=== PATIENT | female | born 1945 | race Caucasian/White ===

== ENCOUNTER 2016-07-20 10:37 | Day surgery (SDC) | payer MEDICARE, OTHER ==
[2016-07-20] MEDS ORDERED: LACTATED RINGERS 1,000 ML IV ONE ×2 (10:48→12:04)
[2016-07-20] MEDS ORDERED: fentaNYL 250 MCG/5 ML VIAL IVP ONE (11:00)
[2016-07-20] MEDS ORDERED: MIDAZOLAM 2 MG/2 ML VIAL IVP ONE (11:00)
== END 2016-07-20 10:38 | disposition home or self-care (01) ==
PROC: 0DJD8ZZ Inspection of Lower Intestinal Tract, Via Natural or Artificial Opening Endoscopic (ICD-10-PCS; principal; 2016-07-20 12:45)
DX: Z12.11 Encounter for screening for malignant neoplasm of colon (principal); K57.30 Diverticulosis of large intestine without perforation or abscess without bleeding; K64.8 Other hemorrhoids
CPT/HCPCS: G0121; J3010; J7120

== ENCOUNTER 2017-03-24 15:36 | Outpatient (CLI) | payer MEDICARE, OTHER ==
--- NOTE | 2017-03-25 09:24 | XRAY Report ---
THREE VIEW LUMBAR SPINE: 03/24/2017 CLINICAL INDICATION: Pain. FINDINGS: AP, lateral, and coned down views of the lumbar spine demonstrate moderate degenerative di sk and facet disease. There is no evidence of acute fracture. The bowel gas pattern is normal. Cholel ithiasis is noted. IMPRESSION: MODERATE DEGENERATIVE CHANGES. NO EVIDENCE OF FRACTURE. JOB #: [id number] EXT JOB #:[id number]
== END 2017-03-24 15:37 | disposition home or self-care (01) ==
LOC: DI.S 15:36
PROVIDERS: ATTEND Physician Assistant
DX: M51.36 Other intervertebral disc degeneration, lumbar region (principal)
CPT/HCPCS: 72100

== ENCOUNTER 2017-12-21 09:06 | Outpatient (CLI) | payer MEDICARE ==
[2017-12-21 18:09] LABS: BASOPHILS % (AUTO) 0.5 %; EOSINOPHILS # (AUTO) 0.1 10^3/uL (0.0-0.7); EOSINOPHILS % (AUTO) 3.2 %; HGB - HEMOGLOBIN 14.8 g/dL (12.0-16.0); LYMPHOCYTES # (AUTO) 1.7 10^3/uL (1.5-3.5); LYMPHOCYTES % (AUTO) 41.9 %; MEAN CORPUSCULAR HEMOGLOBIN 32.2 pg (27.0-31.0); MEAN CORPUSCULAR HGB CONC 33.9 g/dL (32.0-36.0); MEAN CORPUSCULAR VOLUME 94.9 fL (81.0-99.0); MEAN PLATELET VOLUME 9.3 fL (7.9-10.8); MONOCYTES # (AUTO) 0.3 10^3/uL (0.0-1.0); MONOCYTES % (AUTO) 6.7 %; NEUTROPHILS # (AUTO) 1.9 10^3/uL (1.5-6.6); NEUTROPHILS % (AUTO) 47.7 %; PLT - PLATELET COUNT 185 10^3/uL (130-450); RED CELL DISTRIBUTION WIDTH 13.3 % (12.0-15.0)
[2017-12-21 18:25] LABS: HB2 TOTAL 16.3 g/dL; HEMOGLOBIN A1C 0.56 g/dL; HEMOGLOBIN A1C % 5.3 % (4.6-6.2)
[2017-12-21 18:34] LABS: ALBUMIN 3.7 g/dL (3.2-5.5); ALBUMIN/GLOBULIN RATIO 1.2 (1.0-2.2); ALKALINE PHOSPHATASE 45 IU/L (42-121); ALT ALANINE AMINOTRANSFERASE 25 IU/L (10-60); AST ASPARTATE AMINOTRANSFERASE 27 IU/L (10-42); BILIRUBIN,TOTAL 0.5 mg/dL (0.2-1.0); BUN - BLOOD UREA NITROGEN 21 mg/dL (6-20); CALCIUM 9.1 mg/dL (8.5-10.3); CARBON DIOXIDE - CO2 29 mmol/L (21-32); CHLORIDE 106 mmol/L (101-111); CHOL/HDL RATIO 2.8 (<4.4); CHOLESTEROL 206 mg/dL; CREATININE 0.7 mg/dL (0.4-1.0); GFR - MDRD 83 (>89); GLUCOSE 83 mg/dL (70-100); HDL CHOLESTEROL 73 mg/dL; LDL CHOLESTEROL,CALCULATED 116 mg/dL; LDL/HDL RATIO 1.6 (<4.4); SODIUM 141 mmol/L (135-145); TOTAL PROTEIN 6.8 g/dL (6.7-8.2); VLDL CHOLESTEROL 17 mg/dL
[2017-12-21 18:35] LABS: THYROID STIMULATING HORMONE 1.13 uIU/mL (0.34-5.60)
[2017-12-21 18:36] LABS: FREE T4 (FREE THYROXINE) 0.74 ng/dL (0.58-1.64)
[2017-12-22 11:26] LABS: ESTRADIOL <15 pg/mL
[2017-12-22 13:36] LABS: PROGESTERONE <0.5 ng/mL
== END 2017-12-21 09:07 | disposition home or self-care (01) ==
LOC: LAB.F 09:06
PROVIDERS: ATTEND Naturopath
DX: Z00.00 Encounter for general adult medical examination without abnormal findings (principal); R73.01 Impaired fasting glucose; E03.9 Hypothyroidism, unspecified; N94.3 Premenstrual tension syndrome; N95.1 Menopausal and female climacteric states; R53.83 Other fatigue
CPT/HCPCS: 36415; 80053; 80061; 82626; 82670; 83036; 83721; 84144; 84439; 84443; 84481; 85025

== ENCOUNTER 2018-09-16 07:39 | Outpatient (CLI) | payer MEDICARE, OTHER ==
--- NOTE | 2018-09-16 09:05 | DEXA Report ---
Reason: ASYMPTOMATIC MENOPAUSAL STATE Procedure Date: 09/16/2018 Accession Number: [id number] / [id number] Procedure: DEX - Dexa Spine and/or Hip CPT Code: FULL RESULT: EXAM: Dexa Spine and/or Hip DATE: 09/16/2018 8:30 AM CLINICAL HISTORY: ASYMPTOMATIC MENOPAUSAL STATE TECHNIQUE: Dual energy x-ray absorptiometry (DXA) was performed on a [employer] System. Regions measured are the AP Spine, femoral neck, and if needed forearm. COMPARISON: None. In accordance with the International Society for Clinical Densitometry (ISCD) guidelines, data from previous exams may be reanalyzed using current recommendations and techniques. This is done to allow a more accurate basis for comparison with the current study. FINDINGS: The data for the lumbar spine is as follows: BMD (g/cm/cm) T-SCORE Z-SCORE REGION L1 1.155 0.2 2.1 L2 1.179 -0.2 1.7 L3 1.329 1.1 2.9 L4 1.303 0.9 2.7 TOTAL 1.250 0.6 2.4 NOTE: All evaluable vertebrae are used for classification The data for the hip is as follows: BMD (g/cm/cm) T-SCORE Z-SCORE REGION Neck 0.944 -0.7 1.2 TOTAL 1.041 0.3 1.9 NOTE: The femoral neck or total proximal femur, whichever is lowest, is used for classification. IMPRESSION: THE WHO CLASSIFICATION BASED ON THE INTERNATIONAL REFERENCE STANDARD IS NORMAL. THE FRACTURE RISK IS NOT INCREASED. RECOMMENDATION: Patients with diagnosis of osteoporosis or osteopenia should have regular bone mineral density assessment. For those eligible for Medicare, routine testing is allowed once every 2 years. Testing frequency can be increased for patients who have rapidly progressing disease or for those who are receiving medical therapy to restore bone mass. COMMENT: World Health Organization (WHO) definitions for osteoporosis and osteopenia: NORMAL BMD: T-score at -1.0 or higher, fracture risk is low OSTEOPENIA BMD: T-score between -1.0 and -2.5, fracture risk is increased. OSTEOPOROSIS BMD: T-score at -2.5 or lower, fracture risk is high. National Osteoporosis Foundation recommends: 1. Obtain adequate dietary calcium (at least 1200 mg per day) and vitamin D (400-800 international units per day). 2. Participate, as appropriate, in regular weightbearing and muscle-strengthening exercise. 3. Avoid tobacco use and reduce alcohol and caffeine intake. 4. For more detailed information see the website at www.NOF.org.
== END 2018-09-16 07:40 | disposition home or self-care (01) ==
LOC: DI 07:39
PROVIDERS: ATTEND Physician Assistant
DX: Z13.820 Encounter for screening for osteoporosis (principal); Z78.0 Asymptomatic menopausal state
CPT/HCPCS: 77080

== ENCOUNTER 2018-09-20 15:48 | Outpatient (CLI) | payer MEDICARE, OTHER ==
--- NOTE | 2018-09-21 12:33 | Mammography Report ---
Reason: SCREENING MAMMO Procedure Date: 09/20/2018 Accession Number: [id number] / [id number] Procedure: MELITA - Screening Mammo w/Oh CPT Code: FULL RESULT: EXAM: Screening Mammo w/Oh DATE: 09/20/2018 4:56 PM CLINICAL HISTORY: Routine screening. Family history of breast cancer in sister at age 50 and paternal aunt age 70. TECHNIQUE: Bilateral CC and MLO views were obtained. COMPARISON: 05/19/2016 through 10/07/2011 FINDINGS: The breasts demonstrate scattered fibroglandular densities bilaterally. Bilateral breasts: There are no suspicious masses, calcifications or areas of distortion. Stable appearance of 3-D equal density circumscribed margin oval masses one in the central and 2 in the medial right breast. IMPRESSION: Benign findings RECOMMENDATION: Routine annual screening unless otherwise clinically indicated. BI-RADS CATEGORY 2: Benign findings STANDARD QUALIFYING STATEMENTS: 1. This examination was not reviewed with the aid of Computer-Aided Detection (CAD). 2. A negative or benign imaging report should not preclude biopsy if clinically suspicious findings are present. 3. Dense breasts may obscure an underlying neoplasm. 4. This examination was reviewed with the aid of 3D breast imaging (tomosynthesis).
== END 2018-09-20 15:49 | disposition home or self-care (01) ==
LOC: DI 15:48
PROVIDERS: ATTEND Physician Assistant
DX: Z12.31 Encounter for screening mammogram for malignant neoplasm of breast (principal); Z80.3 Family history of malignant neoplasm of breast
CPT/HCPCS: 77063; 77067

== ENCOUNTER 2019-01-16 09:41 | Outpatient (CLI) | payer MEDICARE, OTHER ==
[2019-01-16 17:54] LABS: BILIRUBIN,DIRECT 0.1 mg/dL (0.1-0.5); BILIRUBIN,TOTAL 0.6 mg/dL (0.2-1.0); CREATININE 0.7 mg/dL (0.4-1.0); TOTAL PROTEIN 6.6 g/dL (6.7-8.2)
== END 2019-01-16 09:42 | disposition home or self-care (01) ==
LOC: LAB.S 09:41
PROVIDERS: ATTEND Physician Assistant Medical
DX: B35.1 Tinea unguium (principal); Z79.899 Other long term (current) drug therapy
CPT/HCPCS: 36415; 80076; 82565; 84520

== ENCOUNTER 2020-11-06 09:45 | Outpatient (CLI) | payer MEDICARE, OTHER ==
--- NOTE | 2020-11-07 12:06 | Mammography Report ---
BILATERAL DIGITAL SCREENING MAMMOGRAM 3D/2D WITH EXAGGERATED CC: 11/06/2020 CLINICAL: Family history of breast cancer. Comparison is made to exams dated: 09/20/2018 mammogram, 05/19/2016 mammogram, 05/11/2013 mammogram, a nd 05/06/2016 mammogram - [facility]. There are scattered fibroglandular elements in both breasts. No significant masses, calcifications, or other findings are seen in either breast. There has been no significant interval change. IMPRESSION: NEGATIVE There is no mammographic evidence of malignancy. A 1 year screening mammogram is recommended. This exam was interpreted at Station ID: [id number]. NOTE: For mammograms, a report in lay terms will be sent to the patient. Approximately 15% of breast malignancies will not be visualized mammographically. In the management of a palpable breast mass, a negative mammogram must not discourage biopsy of a clinically suspicious lesion. Electronically Signed By: Oscar Prasad M.D. aty/penrad:11/06/2020 12:04:12 ACR BI-RADS Category 1: Negative 3341F PARENCHYMAL PATTERN: (A) - The breast(s) demonstrate(s) scattered fibroglandular densities. BI-RADS CATEGORY: (1) - 1 RECOMMENDATION: (ANNUAL) - Recommend routine annual screening mammography. [id number] 1 year screening LATERALITY: (B)
== END 2020-11-06 09:46 | disposition home or self-care (01) ==
LOC: DI.S 09:45
PROVIDERS: ATTEND Nurse Practitioner Family
DX: Z12.31 Encounter for screening mammogram for malignant neoplasm of breast (principal); Z80.3 Family history of malignant neoplasm of breast

== ENCOUNTER 2021-09-07 10:33 | Emergency (ER) | payer MEDICARE, OTHER ==
[2021-09-07 11:04] LABS: BILIRUBIN,URINE NEGATIVE (NEGATIVE); GLUCOSE, URINE (UA) NEGATIVE (NEGATIVE); KETONES,URINE (UA) NEGATIVE (NEGATIVE); LEUKOCYTE ESTERASE, URINE NEGATIVE (NEGATIVE); OCCULT BLOOD,URINE NEGATIVE (NEGATIVE)
[2021-09-07 11:07] LABS: CLARITY,URINE CLEAR (CLEAR)
[2021-09-07 11:08] LABS: BACTERIA,URINE None Seen /HPF (None Seen); RBC,URINE 0-5 /HPF (0-5); SQUAMOUS EPITHELIAL CELL,UR NONE SEEN (<= Few)
[2021-09-07 11:09] LABS: WBC,URINE 0-3 /HPF (0-5)
[2021-09-07 11:11] LABS: BASOPHILS % (AUTO) 0.3 %; EOSINOPHILS % (AUTO) 0.3 %; HCT - HEMATOCRIT 45.2 % (37.0-47.0); LYMPHOCYTES # (AUTO) 1.3 10^3/uL (1.5-3.5); LYMPHOCYTES % (AUTO) 14.9 %; MEAN CORPUSCULAR HEMOGLOBIN 31.1 pg (27.0-31.0); MEAN CORPUSCULAR HGB CONC 33.2 g/dL (32.0-36.0); MEAN CORPUSCULAR VOLUME 93.8 fL (81.0-99.0); MEAN PLATELET VOLUME 9.7 fL (7.9-10.8); MONOCYTES # (AUTO) 0.6 10^3/uL (0.0-1.0); NEUTROPHILS # (AUTO) 6.7 10^3/uL (1.5-6.6); NEUTROPHILS % (AUTO) 77.2 %; PLT - PLATELET COUNT 204 10^3/uL (130-450); RED BLOOD COUNT 4.82 10^6/uL (4.20-5.40); RED CELL DISTRIBUTION WIDTH 12.4 % (12.0-15.0); WHITE BLOOD COUNT 8.7 x10^3/uL (4.8-10.8)
[2021-09-07 11:25] LABS: ALBUMIN 4.1 g/dL (3.2-5.5); ALBUMIN/GLOBULIN RATIO 1.3 (1.0-2.2); CALCIUM 9.1 mg/dL (8.5-10.3); CREATININE 0.8 mg/dL (0.4-1.0); POTASSIUM 4.3 mmol/L (3.5-5.0); TOTAL PROTEIN 7.3 g/dL (6.7-8.2)
--- NOTE | 2021-09-07 11:51 | ED Physician Documentation ---
PD HPI ABD PAIN - Stated complaint Stated Complaint: LOWER ABD PAIN - Chief complaint Chief Complaint: Abd Pain - History obtained from History obtained from: Patient - History of Present Illness Timing - onset: How many days ago (2) Timing - duration: Days (2) Pain level max: 10 Pain level now: 6 Quality: Aching, Sharp, Pain. No: Cramping, Dull, Throbbing, Indigestion Location: RLQ, LLQ Associated symptoms: No: Nausea, Vomiting, Hematemesis, Constipation, Melena, Hematochezia, Dysuria, Hematuria, Chest pain, Vaginal bleeding Similar symptoms before: Has not had sx before Recently seen: Not recently seen - Additional information Additional information: Patient is a 76-year-old female who presents to the emergency department complaining of lower abdominal pain. This been ongoing for the past 2 days. She states it started on the right lower quadrant and has gradually increased over the past 24 hours. She states the pain is very severe last night but seem to be lessened today. Small amount of diarrhea this morning. Has had a hysterectomy in the past, but ovaries were left. Nothing seems to make it better or worse at the moment. Patient states that her last colonoscopy was about 4 years ago and it was reportedly normal. Review of Systems Constitutional: denies: Fever, Chills Cardiac: denies: Chest pain / pressure, Palpitations Respiratory: denies: Cough GI: denies: Vomiting, Hematemesis, Bloody / black stool : denies: Dysuria, Frequency, Hesitancy Skin: denies: Rash Musculoskeletal: denies: Neck pain, Back pain Neurologic: denies: Headache PD PAST MEDICAL HISTORY - Past Medical History Past Medical History: Yes Cardiovascular: None Respiratory: None Neuro: None Endocrine/Autoimmune: None GI: None PLATING STRIPPER: None : None HEENT: None Psych: None Musculoskeletal: Gout Derm: None - Past Surgical History Past Surgical History: Yes General: Colonoscopy /PLATING STRIPPER: Tubal ligation, Hysterectomy - Present Medications Home Medications: Ambulatory Orders Medication Instructions Recorded Confirmed Amox/Clav 875/125 [Augmentin] 1 each PO Q8H #30 tablet 09/07/21 - Allergies Allergies/Adverse Reactions: Allergies Allergy/AdvReac Type Severity Reaction Status Date / Time No Known Drug Allergies Allergy Verified 09/07/21 10:47 - Social History Does the pt smoke?: No Smoking Status: Never smoker Does the pt drink ETOH?: Yes Does the pt have substance abuse?: No - Immunizations Immunizations are current?: Yes PD ED PE NORMAL - Vitals Vital signs reviewed: Yes - General General: Alert and oriented X 3, No acute distress - HEENT HEENT: Moist mucous membranes - Neck Neck: Supple, no meningeal sign - Cardiac Cardiac: RRR, Strong equal pulses - Respiratory Respiratory: No respiratory distress, Clear bilaterally - Abdomen Abdomen: Soft, Non distended, Other (Mild tenderness to palpation bilateral lower quadrants. No peritoneal signs) - Back Back: No CVA TTP - Derm Derm: Warm and dry - Extremities Extremities: No edema - Neuro Neuro: Alert and oriented X 3 - Psych Psych: Normal mood, Normal affect Results - Vitals Vitals: Vital Signs - 24 hr 09/07/21 09/07/21 10:43 12:17 Temperature 36.4 C L 36.7 C Heart Rate 92 75 Respiratory 16 14 Rate Blood Pressure 128/97 H 111/51 L O2 Saturation 99 100 Oxygen O2 Source Room air - Labs Labs: Laboratory Tests 09/07/21 09/07/21 09/07/21 10:57 11:06 11:06 WBC 8.7 RBC 4.82 Hgb 15.0 Hct 45.2 MCV 93.8 MCH 31.1 H MCHC 33.2 RDW 12.4 Plt Count 204 MPV 9.7 Neut # (Auto) 6.7 H Lymph # (Auto) 1.3 L [place] # (Auto) 0.6 Eos # (Auto) 0.0 Baso # (Auto) 0.0 Absolute Nucleated RBC 0.00 Nucleated RBC % 0.0 Sodium 140 Potassium 4.3 Chloride 103 Carbon Dioxide 27 Anion Gap 10.0 BUN 12 Creatinine 0.8 Estimated GFR (MDRD) 70 L Glucose 130 H Calcium 9.1 Total Bilirubin 1.0 AST 31 ALT 30 Alkaline Phosphatase 44 Total Protein 7.3 Albumin 4.1 Globulin 3.2 Albumin/Globulin Ratio 1.3 Lipase 33 Urine Color ORANGE Urine Clarity CLEAR Urine pH Ur Specific [place] Urine Protein Urine Glucose (UA) NEGATIVE Urine Ketones NEGATIVE Urine Occult Blood NEGATIVE Urine Nitrite Urine Bilirubin NEGATIVE Urine Urobilinogen Ur Leukocyte Esterase NEGATIVE Urine RBC 0-5 Urine WBC 0-3 Ur Squamous Epith Cells NONE SEEN Urine Bacteria None Seen Ur Microscopic Review INDICATED Urine Culture Comments NOT INDICATED - Rads (name of study) CT abd/pelvis Radiology: Final report received, EMP read contemporaneously, See rad report PD MEDICAL DECISION MAKING - ED course Complexity details: reviewed old records (Reviewed prior colonoscopy from 4 years ago), reviewed results, re-evaluated patient, considered differential, d/w patient ED course: 76-year-old female with diverticulitis. We did discuss risks and benefits of treating with antibiotics versus watchful waiting. Patient elects to treat with antibiotics. She understands the risks of potential C. difficile colitis and other risks. Patient is well-appearing, nontoxic. Afebrile. Declines anything for pain here or for home. Patient counseled regarding signs and symptoms for which I believe and urgent re-evaluation would be necessary. Patient with good understanding of and agreement to plan and is comfortable going home at this time This document was made in part using voice recognition software. While efforts are made to proofread this document, sound alike and grammatical errors may occur. IMPRESSION: 1. Scattered colonic diverticulosis with moderate acute diverticulitis involving the sigmoid colon. No evidence for perforation or organized fluid collection. Recommend routine colonoscopy after resolution of acute symptoms to exclude underlying neoplasm. 2. Mild circumferential wall thickening of the distal transverse and descending colon which likely represents incomplete distention. No substantial surrounding inflammatory changes identified. 3. Moderately distended gallbladder containing multiple gallstones. No CT evidence to suggest acute cholecystitis. However, recommend clinical correlation to exclude acute symptoms in the right upper quadrant. Departure - Departure Disposition: 01 Home, Self Care Clinical Impression: Diverticulitis of gastrointestinal tract Condition: Good Instructions: ED Diverticulitis Follow-Up: PERRY BADILLO ARNP [Primary Care Provider] - Within 1 week Prescriptions: Amox/Clav 875/125 [Augmentin] 1 each PO Q8H #30 tablet Comments: Take all antibiotics until gone. Return if you worsen. Your prescription was sent to [facility] in [place]. Your CT scan shows diverticulitis today. Discharge Date/Time: 09/07/21 13:21
[2021-09-07] MEDS ORDERED: IOVERSOL 320 100 ML VIAL IVP ONE ×2 (11:57→12:09)
[2021-09-07 12:17] VITALS: BP 111/51
--- NOTE | 2021-09-07 12:46 | CT Report ---
PROCEDURE: Abdomen/Pelvis W INDICATIONS: diffuse lower abd pain CONTRAST: IV CONTRAST: Optiray 320 ml: 100 PO CONTRAST: *NO PO CONTRAST TECHNIQUE: After the administration of weight appropriate dose of intravenous contrast, 5 mm thick sections acqu ired from the diaphragms to the symphysis. 5 mm thick coronal and sagittal reformats were acquired. For radiation dose reduction, the following was used: automated exposure control, adjustment of mA and/or kV according to patient size. COMPARISON: None. FINDINGS: Image quality: Excellent. ABDOMEN: Lung bases: Mild bibasilar atelectasis.. Heart size is normal. Solid organs: Liver and spleen are normal in size and enhancement. Several scattered hepatic hypode nsities which are incompletely characterized but likely represent cysts versus hemangiomas. Gallbladd er is moderately distended and contains multiple gallstones. No CT evidence for acute inflammatory ch anges. Biliary system is non dilated. Pancreas enhances normally. No adrenal nodules. Kidneys dem onstrate normal size and enhancement, without hydronephrosis. Peritoneum and bowel: Visualized portions of the stomach, duodenum, and small bowel appear unremarkab le. No evidence for obstruction. The colon is abnormal in appearance. Moderate scattered colonic dive rticulosis is identified. There is moderate inflammatory changes involving the sigmoid colon with cir cumferential wall thickening more distally. No evidence for asymmetric wall thickening or suspicious mass lesions within the visualized colon. There is minimal circumferential wall prominence of the dis elvin transverse and descending colon likely related to incomplete distention. No definite pericolonic inflammatory stranding noted in these segments. Appendix is normal. No free fluid or air. Nodes and vessels: No retroperitoneal or mesenteric adenopathy by size criteria. Aorta and inferior vena cava are normal in size. Miscellaneous: No ventral hernias. PELVIS: Genitourinary: Bladder wall thickness is normal. Miscellaneous: No inguinal hernias or adenopathy. Bones: No suspicious bony lesions. No acute vertebral body compression fractures. IMPRESSION: 1. Scattered colonic diverticulosis with moderate acute diverticulitis involving the sigmoid colon. N o evidence for perforation or organized fluid collection. Recommend routine colonoscopy after resolut ion of acute symptoms to exclude underlying neoplasm. 2. Mild circumferential wall thickening of the distal transverse and descending colon which likely re presents incomplete distention. No substantial surrounding inflammatory changes identified. 3. Moderately distended gallbladder containing multiple gallstones. No CT evidence to suggest acute c holecystitis. However, recommend clinical correlation to exclude acute symptoms in the right upper qu adrant. Reviewed by: Oscar Prasad MD on 09/07/2021 11:44 AM [facility] Approved by: Oscar Prasad MD on 09/07/2021 11:44 AM [facility] Station ID: [id number]
[2021-09-07] MEDS ORDERED: AMOX/CLAV 875 MG/125 MG TABLET PO STA (13:00)
== END 2021-09-07 13:21 | disposition home or self-care (01) ==
LOC: ED 10:33
DX: K57.32 Diverticulitis of large intestine without perforation or abscess without bleeding (principal)
CPT/HCPCS: 36415; 74177; 80053; 81001; 83690; 85025; 99284; A9270; Q9967; 81003; 87086

== ENCOUNTER 2022-09-04 13:56 | Outpatient (CLI) | payer MEDICARE, OTHER ==
--- NOTE | 2022-09-07 09:23 | Mammography Report ---
BILATERAL DIGITAL SCREENING MAMMOGRAM 3D/2D: 09/04/2022 CLINICAL: Routine screening. Comparison is made to exams dated: 11/06/2020 mammogram, 09/20/2018 mammogram, 05/19/2016 mammogram, mammogram, and 05/06/2016 mammogram - [facility]. There are scattered areas of fibroglandular density in both breasts (category b / 25%-50% glandular t issue). No significant masses, calcifications, or other findings are seen in either breast. There has been no significant interval change. IMPRESSION: NEGATIVE There is no mammographic evidence of malignancy. A 1 year screening mammogram is recommended. Based on the Tyrer Cuzick model (a risk assessment model) the patients lifetime risk is 9.1% and her 10 year risk is 9.1%. According to the ACR, ACS, and NCCN guidelines, an annual breast MRI exam kathy g with mammogram is recommended if the patients lifetime risk is 20% or greater. This exam was interpreted at Station ID: [id number]. NOTE: For mammograms, a report in lay terms will be sent to the patient. Approximately 15% of breast malignancies will not be visualized mammographically. In the management of a palpable breast mass, a negative mammogram must not discourage biopsy of a clinically suspicious lesion. Electronically Signed By: Oscar garcia/javier:09/04/2022 18:34:53 letter sent: No_Letter ACR BI-RADS Category 1: Negative 3341F PARENCHYMAL PATTERN: (A) - The breast(s) demonstrate(s) scattered fibroglandular densities. BI-RADS CATEGORY: (1) - 1 RECOMMENDATION: (ANNUAL) - Recommend routine annual screening mammography. [id number] 1 year screening LATERALITY: (B)
== END 2022-09-04 13:57 | disposition home or self-care (01) ==
LOC: DI 13:56
PROVIDERS: ATTEND Nurse Practitioner Family
DX: Z12.31 Encounter for screening mammogram for malignant neoplasm of breast (principal)

== ENCOUNTER 2024-02-11 08:02 | Outpatient (CLI) | payer MEDICARE, OTHER ==
--- NOTE | 2024-02-11 15:56 | XRAY Report ---
PROCEDURE: Hips w/Pelvis 2-3V BL INDICATIONS: BILATERAL HIP PAIN TECHNIQUE: 3 view(s) of the hip were acquired. COMPARISON: None. FINDINGS: Bones: No fractures or dislocations. No suspicious bony lesions. The visualized pelvic ring appear s intact. Soft tissues: 1 cm ring calcifications project over the right abdomen. IMPRESSION: No acute osseous abnormality. 1 cm ring shaped calcifications project over the right abdomen. This is most likely benign, but if in dicated CT may further evaluate Reviewed by: Dimitry Tong MD on 02/11/2024 3:55 PM PDT Approved by: Dimitry Tong MD on 02/11/2024 3:55 PM PDT Station ID: [id number]
== END 2024-02-11 08:03 | disposition home or self-care (01) ==
LOC: DI.S 08:02
PROVIDERS: ATTEND Nurse Practitioner Family
DX: M25.551 Pain in right hip (principal); M25.552 Pain in left hip